=== PATIENT | female | born 1965 | race African-American/Black ===

== ENCOUNTER 2017-05-02 10:49 | Inpatient (IN) | payer SELFPAY ==
[~2017-05-02] VITALS: Ht 175.3 cm; Wt 132.0 kg
[2017-05-02 11:37] LABS: BASOPHILS % 0.7 % (0.0-2.0); EOSINOPHILS % 2.4 % (0.0-5.0); HEMATOCRIT. 44.4 % (36.0-48.0); HEMOGLOBIN. 15.2 g/dL (12.0-16.0); MEAN CORPUSCULAR HEMOGLOBIN 32.5 pg (28.0-32.0); MEAN PLATELET VOLUME 8.7 fl (7.4-10.4); NEUTROPHILS % 47.9 % (40.0-76.0); PLATELET 239 x1000/uL (130-400); RED BLOOD CELL COUNT 4.67 mill/uL (4.2-5.4); RED CELL DISTRIBUTION WIDTH 13.9 % (11.6-14.6)
[2017-05-02 11:42] LABS: PROTHROMBIN TIME 10.5 sec (9.4-11.6)
[2017-05-02] MEDS ORDERED: ASPIRIN 81MG TABLET PO ONE (11:45)
[2017-05-02 11:52] LABS: CARBON DIOXIDE 26 mEq/L (21-32); CHLORIDE 106 mEq/L (98-107); TROPONIN I < 0.02 ng/mL (0.00-0.04)
[2017-05-02] MEDS ORDERED: POTASSIUM CHLORIDE 20MEQ TABLET SR PO NR (13:45)
[2017-05-02] MEDS ORDERED: ZOLPIDEM TARTRATE 5MG TABLET PO PRN (13:45)
[2017-05-02] MEDS: AMLODIPINE 5MG TABLET PO SCH ×2 (15:02→20:36)
[2017-05-02 20:00] VITALS: BP 135/72
[2017-05-02 20:30] VITALS: BP 135/72
[2017-05-02] MEDS: METOPROLOL TARTRATE 25MG TABLET PO SCH (20:34)
[2017-05-02 23:51] VITALS: BP 131/80
[2017-05-03] VITALS: BP_SYST 131; BP_SYST 160; BP_DIAS 80; BP_DIAS 94
[2017-05-03 04:00] VITALS: BP 160/94
[2017-05-03 04:30] VITALS: BP 140/90
[2017-05-03 07:14] LABS: CHLORIDE 105 mEq/L (98-107)
[2017-05-03 07:16] LABS: BASOPHILS % 0.7 % (0.0-2.0); EOSINOPHILS % 2.7 % (0.0-5.0); HEMATOCRIT. 45.9 % (36.0-48.0); HEMOGLOBIN. 15.7 g/dL (12.0-16.0); LYMPHOCYTES % 39.4 % (20.0-50.0); MEAN CORPUSCULAR HEMOGLOBIN 32.8 pg (28.0-32.0); MEAN CORPUSCULAR VOLUME 95.9 fL (81.0-99.0); MEAN PLATELET VOLUME 9.7 fl (7.4-10.4); MONOCYTES % 7.6 % (2.0-8.0); NEUTROPHILS % 49.6 % (40.0-76.0); PLATELET 214 x1000/uL (130-400); RED BLOOD CELL COUNT 4.78 mill/uL (4.2-5.4); RED CELL DISTRIBUTION WIDTH 14.3 % (11.6-14.6)
[2017-05-03 07:49] LABS: CARBON DIOXIDE 25 mEq/L (21-32); HDL CHOLESTEROL 50 mg/dL (40-59); LDL CHOLESTEROL 111 mg/dL (5-100); TROPONIN I 0.02 ng/mL (0.00-0.04)
[2017-05-03 08:00] VITALS: BP 122/74
[2017-05-03] MEDS: METOPROLOL TARTRATE 25MG TABLET PO SCH (08:37)
[2017-05-03] MEDS: AMLODIPINE 5MG TABLET PO SCH (08:38)
== END 2017-05-03 10:50 | disposition left against medical advice (07) | DRG 203 ==
LOC: ER 10:49 → 7WST 14:11 → ENRESERV 15:54
PROVIDERS: ADMIT Specialist; ATTEND Specialist
DX: R07.89 Other chest pain (principal); Z68.41 Body mass index [BMI] 40.0-44.9, adult; I10 Essential (primary) hypertension; E87.6 Hypokalemia; E66.9 Obesity, unspecified; Z53.21 Procedure and treatment not carried out due to patient leaving prior to being seen by health care provider; F17.210 Nicotine dependence, cigarettes, uncomplicated; Z82.49 Family history of ischemic heart disease and other diseases of the circulatory system; Z83.3 Family history of diabetes mellitus; Z90.49 Acquired absence of other specified parts of digestive tract; Z72.89 Other problems related to lifestyle
CPT/HCPCS: 36415; 71010; 80048; 80053; 80061; 83036; 83735; 83880; 84443; 84484; 85025; 85610; 93005; 93306

== ENCOUNTER 2018-02-04 01:03 | Emergency (ER) | payer SELFPAY ==
[~2018-02-04] VITALS: Ht 170.2 cm; Wt 91.0 kg
[2018-02-04] MEDS ORDERED: ASPIRIN 81MG TABLET PO ONE (01:15)
[2018-02-04] MEDS ORDERED: NITROGLYCERIN 0.4MG TABLET SL SL PRN (01:15)
[2018-02-04 02:09] LABS: CHLORIDE 106 mEq/L (98-107)
[2018-02-04 02:14] LABS: PARTIAL THROMBOPLASTIN TIME 25.8 sec (23.4-31.0); PROTHROMBIN TIME 10.3 sec (9.1-11.1)
[2018-02-04 02:15] LABS: BASOPHILS % 0.9 % (0.0-2.0); EOSINOPHILS % 3.7 % (0.0-5.0); ETHANOL BLOOD < 10 mg/dL; HEMATOCRIT. 46.3 % (36.0-48.0); LYMPHOCYTES % 46.5 % (20.0-50.0); MEAN CORPUSCULAR HEMOGLOBIN 33.2 pg (28.0-32.0); MEAN CORPUSCULAR VOLUME 96.2 fL (81.0-99.0); MEAN PLATELET VOLUME 9.2 fl (7.4-10.4); MONOCYTES % 6.8 % (2.0-8.0); NEUTROPHILS % 42.1 % (40.0-76.0); PLATELET 241 x1000/uL (130-400); RED BLOOD CELL COUNT 4.82 mill/uL (4.2-5.4)
[2018-02-04 06:10] VITALS: BP 144/92
== END 2018-02-04 06:12 | disposition home or self-care (01) ==
LOC: ER 01:03 → CANBEDREQ 06:15
DX: R07.89 Other chest pain (principal); I48.91 Unspecified atrial fibrillation; F17.210 Nicotine dependence, cigarettes, uncomplicated; Z90.49 Acquired absence of other specified parts of digestive tract
CPT/HCPCS: 36415; 71045; 80053; 80307; 83880; 84484; 85025; 85610; 85730; 93005; 99285; 99406; G0482

== ENCOUNTER 2018-06-27 11:31 | Emergency (ER) | payer BC ==
[~2018-06-27] VITALS: Ht 175.3 cm; Wt 114.0 kg
[2018-06-27 11:33] VITALS: BP 188/120
== END 2018-06-27 12:15 | disposition left against medical advice (07) ==
LOC: ER 11:31
DX: Z53.21 Procedure and treatment not carried out due to patient leaving prior to being seen by health care provider (principal); F17.200 Nicotine dependence, unspecified, uncomplicated; Z90.49 Acquired absence of other specified parts of digestive tract
CPT/HCPCS: 93005

== ENCOUNTER 2018-08-16 21:39 | Emergency (ER) | payer BC ==
[~2018-08-16] VITALS: Ht 177.8 cm; Wt 118.0 kg
[2018-08-16 22:45] VITALS: BP 185/105
[2018-08-16] MEDS ORDERED: AMLODIPINE 5MG TABLET PO ONE (22:45)
== END 2018-08-16 22:49 | disposition home or self-care (01) ==
LOC: ER 21:39
DX: I10 Essential (primary) hypertension (principal); R51 Headache; F17.200 Nicotine dependence, unspecified, uncomplicated; I48.91 Unspecified atrial fibrillation; Z90.49 Acquired absence of other specified parts of digestive tract; Z98.890 Other specified postprocedural states
CPT/HCPCS: 99282

== ENCOUNTER 2018-10-02 22:54 | Emergency (ER) | payer BC | END 2018-10-03 00:46 | disposition left against medical advice (07) | LOC: ER 22:54 | DX: Z53.21 Procedure and treatment not carried out due to patient leaving prior to being seen by health care provider (principal) ==

== ENCOUNTER 2019-04-10 02:01 | Emergency (ER) | payer BC ==
[~2019-04-10] VITALS: Ht 167.6 cm; Wt 72.0 kg
[2019-04-10 03:06] LABS: BASOPHILS % 0.7 % (0.0-2.0); HEMATOCRIT. 40.1 % (36.0-48.0); HEMOGLOBIN. 13.7 g/dL (12.0-16.0); LYMPHOCYTES % 40.4 % (20.0-50.0); MEAN CORPUSCULAR HEMOGLOBIN 31.4 pg (28.0-32.0); MEAN CORPUSCULAR VOLUME 91.8 fL (81.0-99.0); MEAN PLATELET VOLUME 8.9 fl (7.4-10.4); MONOCYTES % 6.3 % (2.0-8.0); NEUTROPHILS % 49.6 % (40.0-76.0); PLATELET 222 x1000/uL (130-400); RED BLOOD CELL COUNT 4.37 mill/uL (4.2-5.4); RED CELL DISTRIBUTION WIDTH 13.3 % (11.6-14.6)
[2019-04-10 03:11] LABS: CHLORIDE 107 mEq/L (98-107)
[2019-04-10] MEDS ORDERED: KETOROLAC 30MG/ML VIAL IV ONE (05:45)
[2019-04-10 06:00] VITALS: BP 127/65
[2019-04-10] MEDS ORDERED: IBUPROFEN 800MG TABLET PO ONE (06:00)
== END 2019-04-10 06:00 | disposition home or self-care (01) ==
LOC: ER 02:01
DX: B34.9 Viral infection, unspecified (principal); I10 Essential (primary) hypertension
CPT/HCPCS: 36415; 71045; 83880; 84484; 93005; 99284; J1885

== ENCOUNTER 2022-06-09 03:39 | Emergency (ER) | payer SELFPAY ==
[~2022-06-09] VITALS: Ht 175.3 cm; Wt 134.0 kg
[2022-06-09] MEDS ORDERED: IOHEXOL-350 100 ML BOTTLE ONE (05:04)
[2022-06-09 05:26] LABS: BASOPHILS % 0.9 % (0.0-2.0); EOSINOPHILS % 2.1 % (0.0-5.0); HEMATOCRIT. 38.3 % (36.0-48.0); HEMOGLOBIN. 12.8 g/dL (12.0-16.0); LYMPHOCYTES % 35.9 % (20.0-50.0); MEAN CORPUSCULAR HEMOGLOBIN 30.1 pg (28.0-32.0); MEAN CORPUSCULAR VOLUME 90.1 fL (81.0-99.0); MEAN PLATELET VOLUME 8.6 fl (7.4-10.4); MONOCYTES % 6.6 % (2.0-8.0); NEUTROPHILS % 54.5 % (40.0-76.0); PLATELET 233 x1000/uL (130-400); RED BLOOD CELL COUNT 4.25 mill/uL (4.2-5.4)
[2022-06-09 05:34] LABS: CHLORIDE 104 mEq/L (98-107)
[2022-06-09 05:36] LABS: PARTIAL THROMBOPLASTIN TIME 22.8 sec (23.4-31.0); PROTHROMBIN TIME 10.4 sec (9.6-11.0)
[2022-06-09 05:42] LABS: ETHANOL BLOOD < 10 mg/dL
[2022-06-09] MEDS ORDERED: ASPIRIN 325MG EC TABLET PO ONE (06:00)
[2022-06-09 06:26] VITALS: BP 115/67
== END 2022-06-09 06:29 | disposition home or self-care (01) ==
LOC: ER 03:39
DX: R41.82 Altered mental status, unspecified (principal); R47.81 Slurred speech; E11.9 Type 2 diabetes mellitus without complications; I10 Essential (primary) hypertension
CPT/HCPCS: 36415; 70450; 70496; 70498; 71045; 80053; 80320; 82962; 84484; 85025; 85610; 85730; 86850; 86900; 86901; 93005; 99291; Q9967; G0480